=== PATIENT | male | born 1955 | race African-American/Black ===

== ENCOUNTER 2016-04-25 15:28 | Inpatient (IN) | payer OTHER ==
[2016-04-25] MEDS ORDERED: CLOPIDOGREL BISULFATE 75 MG TABLET (FP) ONE (16:19)
[2016-04-25 16:30] LABS: BASOPHIL 0.9 % (0-2.0); EOSINOPHIL 2.5 % (0-4.5); MCH 33.5 pg (25.7-33.7); MCHC 34.8 g/dl (32.0-35.9); MEAN CELL VOLUME 96.1 fl (80-96); MEAN PLT VOLUME 7.3 fl (7.5-11.1); NEUTROPHILS 49.6 % (42.8-82.8); PLATELET COUNT 205 K/MM3 (134-434); RDW 12.5 % (11.9-15.9); WHITE BLOOD COUNT 7.6 K/mm3 (4.0-10.0)
[2016-04-25 16:40] LABS: INR 1.11 (0.82-1.09); PROTHROMBIN TIME (PATIENT) 12.2 SEC (9.98-11.88)
--- NOTE | 2016-04-25 16:49 | PDOC ---
History of Present Illness - General Chief Complaint: CVA/TIA Stated Complaint: ABNORMAL MRI (PCP SENT) Time Seen by Provider: 04/25/16 16:23 History Source: Patient Exam Limitations: No Limitations - History of Present Illness Initial Comments: 04/25/16 19:30 60 year old male came for a scheduled MRI of brain (sent by Dr. Barajas) and found 2 new lesions hence sent to the ED. A/c to the patient, he had first stroke in November,, second stroke in February, with left eye vision problem with left sided weakness. 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 He visited Dr. Barajas in March and mentioned about vision loss since 10 days, hence she recommended him to get a Brain MRI and he came here at [facility] today. Patient had no new symptoms during these periods. Patient reports to have headache on/off in the temporal area, tremor of hands, Dizziness on/off since his last stroke. Hasn't been able to go to work since November,. Denies loc, trauma, chest pain, sob, cough, palpitation, abdominal pain, nausea or vomiting. Bowel/Bladder habit normal. Sleep/Appetite Normal Past Medical Hx: Hypertension, Hyperlipidemia, DM, Pancreatic cancer s/p surgery 17 yrs ago, 2 stroke with left sided weakness and left eye visual problem. 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 Barajas (Neurologist) 04/25/16 20:09 Past History - Past Medical History Allergies/Adverse Reactions: Allergies Allergy/AdvReac Type Severity Reaction Status Date / Time No Known Allergies Allergy Verified 04/25/16 15:47 Home Medications: Ambulatory Orders Unobtainable [Unobtainable] 04/25/16 CVA: Yes (2, IMBLANCE AT TIMES) Diabetes: Yes GI Disorders: Yes (PANCREATITIS) HTN: Yes - Surgical History Abdominal Surgery: Yes - Psycho/Social/Smoking Cessation Hx Suicidal Ideation: No Smoking History: Current every day smoker Number of Cigarettes Smoked Daily: 3 Information on smoking cessation initiated: No Hx Alcohol Use: Yes (THREE TIME A WEEK BEER) Drug/Substance Use Hx: No Review of Systems - Review of Systems Able to Perform ROS?: Yes Comments:: 04/25/16 19:42 CONSTITUTIONAL: Absent: fever, chills, diaphoresis, generalized weakness, malaise, loss of appetite HEENT: Absent: rhinorrhea, nasal congestion, throat pain, throat swelling, difficulty swallowing, mouth swelling, ear pain, eye pain, visual Changes CARDIOVASCULAR: Absent: chest pain, syncope, palpitations, irregular heart rate, lightheadedness , peripheral edema RESPIRATORY: Absent: cough, shortness of breath, dyspnea with exertion, orthopnea, wheezing, stridor, hemoptysis GASTROINTESTINAL: Absent: abdominal pain, abdominal distension, nausea, vomiting, diarrhea, constipation, melena, hematochezia GENITOURINARY: Absent: dysuria, frequency, urgency, hesitancy, hematuria, flank pain, genital pain MUSCULOSKELETAL: Absent: myalgia, arthralgia, joint swelling SKIN: Absent: rash, itching, pallor HEMATOLOGIC/IMMUNOLOGIC: Absent: easy bleeding, easy bruising, lymphadenopathy, frequent infections ENDOCRINE: Absent: unexplained weight gain, unexplained weight loss, heat intolerance, cold intolerance NEUROLOGIC: Present: Headhace, focal weakness or paresthesias, dizziness, Absent: unsteady gait, seizure, mental status changes, bladder or bowel incontinence PSYCHIATRIC: Absent: anxiety, depression, suicidal or homicidal ideation, hallucinations. Is the patient limited Tajik proficient: No *Physical Exam - Vital Signs Last Vital Signs Temp Pulse Resp BP Pulse Ox 98.5 F 66 16 148/79 98 04/25/16 15:43 04/25/16 15:43 04/25/16 15:43 04/25/16 15:43 04/25/16 15:43 - Physical Exam Comments: 04/25/16 19:43 PE: GENERAL: Awake, alert, and fully oriented, in no acute distress HEAD: No signs of trauma EYES: PERRLA, EOMI, sclera anicteric, conjunctiva clear Left eye visual loss (lateral half) ENT: Auricles normal inspection, hearing grossly normal, nares patent, oropharynx clear without exudates. Moist mucosa NECK: Normal ROM, supple, no lymphadenopathy, JVD, or masses LUNGS: Breath sounds equal, clear to auscultation bilaterally. No wheezes, and no crackles.. HEART: Regular rate and rhythm, normal S1 and S2, no murmurs, rubs or gallops ABDOMEN: Soft, nontender, normoactive bowel sounds. No guarding, no rebound. No masses UPPER EXTREMITIES: Normal range of motion, no edema. No clubbing or cyanosis. No cords, erythema, or tenderness NEUROLOGICAL: Normal speech, gait not observed. Bulk, tone of all limbs normal. Power 5/5 in upper and lower right, 3/5 in the left, left knee reflex diminished , left lower extremity sensation decreased SKIN: Warm, Dry, normal turgor, no rashes or lesions noted. 04/25/16 19:46 Critical Care Time/MDM Note - Medical Decision Making Note: 04/25/16 14:50 Patient seen and examined at bed side. Looks comfortable. Vitals unremarkable. Physical examination positive for NEUROLOGICAL: Normal speech, gait not observed. Bulk, tone of all limbs normal. Power 5/5 in upper and lower right, 3/5 in the left, left knee reflex diminished , left lower extremity sensation decreased. Spoke with Dr. Barajas and got detailed information. Patient goes to [facility] for treatment. Dr. Petersen saw the patient in Mar, 2016 and recommended MRI Brain. Discussed Brain MRI report over the phone. She recommends admission under Hospitalist, Holter monitor, Echo, PT evaluation, MRA brain and neck, DVT prophylaxis, Plavix 150mg stat, resume home medication. Patients labs noted, creatinine 1.5. Ordered IV NS @ 75mls/hr. Plan: As discussed above, will admit the patient. Patient has been explained in length about his condition, he understands his medical problem. Lovenox not given due to MAY, would consider Heparin MRA brain and neck with contrast not ordered due to MAY IV fluilds to be continued Once gets the home medication list from home, resume home meds Illness, Investigation and Plan of care explained to the patient. He verbalized understanding. Case seen and discussed with Dr. Patel. 04/25/16 20:06 Discharge Disposition - Diagnosis Stroke-like episode - Discharge Dispostion Admit: Yes - Referrals Referrals: Rosa Maria Petersen MD [Primary Care Provider] - Addendum entered and electronically signed by Ashley Alfred RES 05/02/16 18 :07: NIH Stroke Scale - Last Known Well Date/Time & Onset Date Last Known Well: 04/25/16 (Patient referred by Neuro for Brain MRI with 2 new lesions. MRI referred after patient had decreased visual loss since 10 days. ) Time Last Known Well: 16:48 - Initial Evaluation Level of consciousness: Alert Ask patient the month and their age: Answers both correctly Ask patient to open & close eyes; make fist and let go: Obeys both correctly Best gaze (horizontal eye movement): Normal Visual field testing: Partial hemianopia Facial paresis (Show teeth/raise eyebrows/close eyes tight): Normal symmetrical movement Motor Function: Left Arm: Normal Motor Function: Right Arm: Normal (extends arm 90 (or 45) degrees for 10 seconds without drift Motor Function: Left Leg: Normal (extends leg 30 degrees for 5 seconds without drift) Motor Function: Right Leg: Normal (extends leg 30 degrees for 5 seconds without drift) Limb Ataxia: No ataxia Sensory(Use pinprick test arms,legs,trunk,face/side to side): Mild to moderate decrease in sensation Best language (Describe picture, name items, read sentences): No Aphasia Dysarthria (read several words): Normal articulation Extinction and Inattention: No abnormality - Total Score NIH Stroke Scale Score: 2 Addendum entered and electronically signed by Ashley Alfred RES 05/02/16 18 :10: tPA Exclusion checklist 3-4.5h - Ineligibility reason(s) Reasons No tPA given: Outside of window - delayed arrival (No acute symptoms- visual loss was prior month; Delayed Neuro follow up. Case discussed with Dr. Petersen, she mentioned patient had stroke even on aspirin and was changed to plavix only in [facility], hence no aspirin to be given at this time, to be given Plavix 150mg stat.)
[2016-04-25 17:00] LABS: ALBUMIN 4.2 g/dl (3.4-5.0); ANION GAP 7 (8-16); CALCIUM 8.4 mg/dL (8.5-10.1); CO2 26 mmol/L (21-32); GLUCOSE,RANDOM 85 mg/dL (74-106)
[2016-04-25 17:06] LABS: ALK PHOS 61 U/L (45-117); BILIRUBIN,TOTAL 0.5 mg/dL (0.2-1.0); CREATININE 1.5 mg/dL (0.7-1.3); SGOT/AST 21 U/L (15-37); SGPT/ALT 39 U/L (12-78); TOT PROT 7.4 g/dl (6.4-8.2); TROPONIN I < 0.02 ng/ml (0.00-0.05)
[2016-04-25] MEDS ORDERED: CLOPIDOGREL BISULFATE 75 MG TABLET (FP) PO ONE (17:24)
[2016-04-25] MEDS: SODIUM CHLORIDE 1,000 ML IV SCH (18:00)
--- NOTE | 2016-04-25 19:34 | PDOC ---
Attending Attestation - Resident Resident Name: Aubrie,Jenny - HPI HPI: 04/25/16 19:30 60 yo male found to have brain MRI with new lesions/sent by neuro Dr Petersen for admission.Had c/o loss of vision that resulted in seeing ophthal then neurology who ordered the MRI. wnwd 60 yo male eyes-alcon , neck-supple, cvs [id number], lungs cta b/l, abd soft,nontender, neuro -axox3,ambulatory 04/27/16 02:19 - Physicial Exam PE: 04/25/16 19:33 axox3 WNWD 60 yo male lungs cta b/l cvr [id number] abd soft,nontender ext no edema neuro axox3,ambulatory,motor strength 5/5 b/l - Medical Decision Making 04/27/16 02:21 pt admitted for further neurological evaluation
--- NOTE | 2016-04-25 20:04 | PN ---
Teaching Attending Note Name of Resident: Rome De Souza ATTENDING PHYSICIAN STATEMENT I saw and evaluated the patient. I reviewed the resident's note and discussed the case with the resident. I agree with the resident's findings and plan as documented. SUBJECTIVE: OBJECTIVE: ASSESSMENT AND PLAN:
--- NOTE | 2016-04-25 21:32 | PDOC ---
*Physical Exam - Vital Signs Last Vital Signs Temp Pulse Resp BP Pulse Ox 98.5 F 66 16 148/79 98 04/25/16 15:43 04/25/16 15:43 04/25/16 15:43 04/25/16 15:43 04/25/16 15:43 ED Treatment Course - LABORATORY CBC & Chemistry Diagram: 04/25/16 16:11 04/25/16 16:11 - ADDITIONAL ORDERS Additional order review: Laboratory Results 04/25/16 04/25/16 16:11 16:11 INR 1.11 Sodium 136 Potassium 4.5 Chloride 103 Carbon Dioxide 26 Anion Gap 7 L BUN 29 H Creatinine 1.5 H Creat Clearance w eGFR 47.74 Random Glucose 85 Calcium 8.4 L Total Bilirubin 0.5 AST 21 ALT 39 Alkaline Phosphatase 61 Creatine Kinase 141 Troponin I < 0.02 Total Protein 7.4 Albumin 4.2 04/25/16 16:11 RBC 3.15 L MCV 96.1 H MCHC 34.8 RDW 12.5 MPV 7.3 L Neutrophils % 49.6 Lymphocytes % 36.9 Monocytes % 10.1 Eosinophils % 2.5 Basophils % 0.9 - Medications Given in the ED: ED Medications Discontinued Medications Generic Name Dose Route Start Last Admin Trade Name Freq PRN Reason Stop Dose Admin Clopidogrel Bisulfate 75 mg 04/25/16 17:24 04/25/16 17:00 Plavix - PO 04/25/16 17:25 75 mg ONCE ONE Administration *DC/Admit/Observation/Transfer Diagnosis at time of Disposition: Stroke-like episode, Abnormal vision - Discharge Dispostion Admit: Yes
--- NOTE | 2016-04-25 22:31 | HP ---
Admitting History and Physical - Primary Care Physician PCP: Munod Espinoza - Admission History of Present Illness: 60 year old male came for a scheduled MRI of brain (sent by Dr. Barajas) and found 2 new lesions hence sent to the ED. A/c to the patient, he had first stroke in November,, second stroke in February, with left eye vision problem with left sided weakness. 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 He visited Dr. Barajas in March and mentioned about vision loss since 10 days, hence she recommended him to get a Brain MRI and he came here at [facility] today. Patient had no new symptoms during these periods. Patient reports to have headache on/off in the temporal area, tremor of hands, Dizziness on/off since his last stroke. Hasn't been able to go to work since - Smoking History Smoking history: Current every day smoker Aproximately how many cigarettes per day: 3 - Alcohol/Substance Use Hx Alcohol Use: Yes (THREE TIME A WEEK BEER) Home Medications - Allergies Allergies/Adverse Reactions: Allergies Allergy/AdvReac Type Severity Reaction Status Date / Time No Known Allergies Allergy Verified 04/25/16 15:47 - Home Medications Home Medications: Ambulatory Orders Clopidogrel Bisulfate [Plavix -] 75 mg PO DAILY 04/26/16 Gabapentin 300 mg PO HS 04/26/16 Insulin Glargine,Hum.rec.anlog [Lantus (10mL VIAL) -] 40 units SQ AM 04/26/16 Insulin Glargine,Hum.rec.anlog [Lantus (10mL VIAL) -] 60 units SQ HS 04/26/16 Labetalol HCl [Normodyne -] 200 mg PO BID 04/26/16 Lipase/Protease/Amylase [Chris Wynn 24,000 Units Capsule] 24,000 units PO TID Losartan/Hydrochlorothiazide [Losartan-Hctz 100-25 mg Tab] 1 cap PO DAILY Oxycodone HCl/Acetaminophen [Endocet 5-325 Tablet] 1 each PO Q4H PRN 04/26/16 Paroxetine HCl [Paxil] 30 mg PO DAILY 04/26/16 Aspirin [ASA -] 325 mg PO DAILY #30 tablet 04/27/16 Atorvastatin Ca [Lipitor] 20 mg PO HS #30 tablet 04/27/16 Physical Examination Vital Signs: Vital Signs Temperature 98.5 F 04/25/16 15:43 Pulse Rate 66 04/25/16 15:43 Respiratory Rate 16 04/25/16 15:43 Blood Pressure 148/79 04/25/16 15:43 O2 Sat by Pulse Oximetry (%) 98 04/25/16 15:43 Constitutional: Yes: No Distress HENT: Yes: Atraumatic Neck: Yes: Supple Cardiovascular: Yes: Regular Rate and Rhythm Respiratory: Yes: CTA Bilaterally Gastrointestinal: Yes: Normal Bowel Sounds Extremities: Yes: WNL Problem List - Problems (1) Stroke-like episode Code(s): I63.9 - CEREBRAL INFARCTION, UNSPECIFIED (2) Vision abnormalities Code(s): H53.9 - UNSPECIFIED VISUAL DISTURBANCE Assessment/Plan Laboratory Tests 04/25/16 04/25/16 04/25/16 16:11 16:11 16:11 WBC 7.6 RBC 3.15 L Hgb 10.5 L Hct 30.3 L MCV 96.1 H MCHC 34.8 RDW 12.5 Plt Count 205 MPV 7.3 L Neutrophils % 49.6 Lymphocytes % 36.9 Monocytes % 10.1 Eosinophils % 2.5 Basophils % 0.9 INR 1.11 Sodium 136 Potassium 4.5 Chloride 103 Carbon Dioxide 26 Anion Gap 7 L BUN 29 H Creatinine 1.5 H Creat Clearance w eGFR 47.74 Random Glucose 85 Calcium 8.4 L Total Bilirubin 0.5 AST 21 ALT 39 Alkaline Phosphatase 61 Creatine Kinase 141 Troponin I < 0.02 Total Protein 7.4 Albumin 4.2 Active Medications Generic Name Dose Route Start Last Admin Trade Name Freq PRN Reason Stop Dose Admin Acetaminophen 650 mg 04/25/16 22:43 04/25/16 22:44 Tylenol - PO 650 mg Q6H PRN Administration FEVER OR PAIN Acetaminophen 325 mg 04/26/16 18:34 04/28/16 16:42 Tylenol - PO 04/29/16 18:33 325 mg Q4H PRN Administration PAIN Aspirin 325 mg 04/27/16 10:00 04/28/16 09:37 Asa - PO 325 mg DAILY JAYY Administration Atorvastatin Calcium 10 mg 04/27/16 22:00 04/27/16 22:19 Lipitor - PO 10 mg HS JAYY Administration Clopidogrel Bisulfate 75 mg 04/27/16 10:00 04/28/16 09:38 Plavix - PO 75 mg DAILY JAYY Administration Gabapentin 300 mg 04/26/16 22:00 04/27/16 22:19 Neurontin - PO 300 mg HS JAYY Administration HCTZ/Losartan Potassium 2 tab 04/27/16 10:00 04/28/16 09:38 Hyzaar - PO 2 tab DAILY JAYY Administration Sodium Chloride 1,000 mls @ 75 mls/hr 04/25/16 17:45 04/28/16 05:43 Normal Saline - IV 75 mls/hr ASDIR JAYY Administration Insulin Aspart 1 vial 04/28/16 11:00 04/28/16 18:18 Novolog Vial Sliding Scale - SQ Not Given BID@[id number] [facility] Protocol Insulin Detemir 40 units 04/27/16 07:00 04/28/16 09:38 Levemir Vial SQ 40 units AM JAYY Administration Insulin Detemir 60 units 04/26/16 20:00 04/27/16 22:20 Levemir Vial SQ 60 units HS [facility] Administration Labetalol HCl 200 mg 04/26/16 17:15 04/28/16 09:38 Normodyne - PO 200 mg BID JAYY Administration Non-Formulary Medication 24,000 units 04/27/16 08:00 Lipase/Protease/Amylase [Chris Wynn 24,000 Units Capsule] PO TIDCM [facility] Oxycodone HCl 5 mg 04/26/16 18:34 04/28/16 16:42 Roxicodone - PO 5 mg Q4H PRN Administration PAIN Paroxetine HCl 30 mg 04/27/16 10:00 04/28/16 09:38 Paxil - PO 30 mg DAILY JAYY Administration 1.CVA R/O MRI NEURO CONSULT1.CVA on asa 2.dm insulin bgms 3.htn stable on meds on holter monitor pt eval dvt ppx pt ambulates
[2016-04-25] MEDS ORDERED: ACETAMINOPHEN 325 MG TABLET (FP) ONE (22:38)
[2016-04-25] MEDS ORDERED: ACETAMINOPHEN 325 MG TABLET (FP) PO PRN ×3 (22:43→23:42)
[2016-04-25] MEDS ORDERED: ACETAMINOPHEN 325 MG TABLET (FP) PO SCH (22:45)
[2016-04-25] MEDS ORDERED: OXYCODONE/APAP 5/325MG COMBO TABLET PO PRN (23:39)
[2016-04-26] MEDS ORDERED: oxyCODONE HCL 5 MG TABLET ONE ×2 (01:18→06:50)
[2016-04-26] MEDS: oxyCODONE HCL 5 MG TABLET PO PRN ×4 (01:38→20:21)
--- NOTE | 2016-04-26 09:40 | CON.CARD ---
Consult Consult Specialty:: Cardiology Referred by:: Dr. Espinoza Reason for Consultation:: CVA - History of Present Illness Chief Complaint: Admitted for CVA History of Present Illness: 60 year old man with a history of HTN, HLD, DM II, Pancreatic CA s/p surgery, multiple prior CVA's 11/2015 and 02/2016 admitted with new neurologic deficits and found to have new CVA's on MRI. Pt. was seen and examined this am in the ER in [facility]. He denies any chest pain, sob, palpitations, syncope, or near syncope. He does have headache and intermittent dizziness. No pnd, orthopnea or LE edema. 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 Cardio/Vascular: Yes: HTN, Hyperlipdemia - Alcohol/Substance Use Hx Alcohol Use: Yes (THREE TIME A WEEK BEER) - Smoking History Smoking history: Current every day smoker Aproximately how many cigarettes per day: 3 - Social History ADL: Independent History of Recent Travel: No Home Medications - Allergies Allergies/Adverse Reactions: Allergies Allergy/AdvReac Type Severity Reaction Status Date / Time No Known Allergies Allergy Verified 04/25/16 15:47 - Home Medications Home Medications: Ambulatory Orders Atorvastatin Ca [Lipitor] 10 mg PO HS 04/26/16 Clopidogrel Bisulfate [Plavix -] 75 mg PO DAILY 04/26/16 Gabapentin 300 mg PO HS 04/26/16 Insulin Glargine,Hum.rec.anlog [Lantus (nf)] 40 units SQ AM 04/26/16 Insulin Glargine,Hum.rec.anlog [Lantus (nf)] 60 units SQ HS 04/26/16 Labetalol HCl [Normodyne -] 200 mg PO BID 04/26/16 Lipase/Protease/Amylase [Chris Wynn 24,000 Units Capsule] 24,000 units PO TID Losartan/Hydrochlorothiazide [Losartan-Hctz 100-25 mg Tab] 1 cap PO DAILY Oxycodone HCl/Acetaminophen [Endocet 5-325 Tablet] 1 each PO Q4H PRN 04/26/16 Paroxetine HCl [Paxil] 30 mg PO DAILY 04/26/16 Family Disease History - Family Disease History Family History: Denies Review of Systems - Review of Systems Constitutional: denies: No Symptoms, Chills, Diaphoresis, Fever, Lethargy, Loss of Appetite, Malaise, Night Sweats, Unintentional Wgt. Loss, Weakness, Other Eyes: reports: Blind Spots, Recent Change in Vision. denies: No Symptoms, Blurred Vision, Double Vision, Eye Pain, Floaters, Photophobia, Other HENT: denies: No Symptoms, Difficult Swallowing, Ear Discharge, Ear Pain, Epistaxis, Gingival Bleeding, Hearing Loss, Mouth Swelling, Nasal Congestion, Ocular Prosthesis, Throat Pain, Toothache, Ringing in Ears, Other Neck: denies: No Symptoms, Decreased ROM, Lumps, Pain on Movement, Stiffness, Swollen Glands, Tenderness, Other Cardiovascular: denies: No Symptoms, Chest Pain, Edema, Palpitations, Shortness of Breath, Other Respiratory: denies: No Symptoms, Cough, Exercise Intolerance, Hemoptysis, Orthopnea, PND, Snoring, SOB, SOB on Exertion, Wheezing, Other Gastrointestinal: denies: No Symptoms, Abdominal Pain, Bloating, Constipation, Diarrhea, Dysphagia, Indigestion, Melena, Nausea, Rectal Bleeding, Vomiting, Vomiting Blood, Other Genitourinary: denies: No Symptoms, Burning, Discharge, Dysuria, Flank Pain, Frequency, Hematuria, Incontinence, Lesions, Menses, Pain, Testicular Mass, Testicular Pain, Testicular Swelling, Urgency, Vaginal Bleeding, Other Breasts: denies: No Symptoms Reported, See HPI, Breast Implants, Discharge from Nipple, Lumps, Pain, Skin Changes, Other Musculoskeletal: denies: No Symptoms, Back Pain, Crepitus, Decreased ROM, Extremity Pain, Joint Pain, Joint Swelling, Muscle Pain, Muscle Cramps, Muscle Weakness, Other Integumentary: denies: No Symptoms, Blister, Bruising, Change in Color, Eczema, Erythema, Incision, Lesions, Lump, Pallor, Pruritis, Rash, Wound, Other Neurological: reports: Dizziness Endocrine: denies: No Symptoms, Excessive Sweating, Flushing, Increased Hunger, Increased Thirst, Intolerance to Cold, Intolerance to Heat, Unexplained Weight Gain, Unexplained Weight Loss, Other Hematology/Lymphatic: denies: No Symptoms, Easily Bruised, Excessive Bleeding, Swollen Glands, Other Psychiatric: denies: No Symptoms, Altered Sleep Pattern, Anxiety, Depression, Hallucinations, Panic, Paranoia, Suicidal, Other - Risk Factors Known Risk Factors: Yes: Hypercholesterolemia, Hypertension Vital Signs: Vital Signs Temperature 98.5 F 04/25/16 15:43 Pulse Rate 59 L 04/26/16 06:54 Respiratory Rate 14 04/26/16 06:54 Blood Pressure 180/89 04/26/16 06:54 O2 Sat by Pulse Oximetry (%) 98 04/26/16 06:54 Constitutional: Yes: Well Nourished, No Distress, Calm Eyes: Yes: WNL, Conjunctiva Clear, EOM Intact, PERRL HENT: Yes: WNL, Atraumatic, Normocephalic Neck: Yes: WNL, Supple, Trachea Midline Respiratory: Yes: WNL, Regular, CTA Bilaterally. No: Rales, Rhonchi, Wheezes Gastrointestinal: Yes: WNL, Normal Bowel Sounds, Soft. No: Distention, Tenderness Renal/: Yes: WNL Cardiovascular: Yes: Regular Rate and Rhythm. No: Bradycardia, Tachycardia, Pulse Irregular, Gallop, Rub, Varicosities JVD: No Carotid Bruit: No PMI: Non-Displaced Heart Sounds: Yes: S1, S2. No: Split S2, S3, S4, Clicks, Gallop, Rub, Bruit Murmur: No: Systolic Murmur, Diastolic Murmur Musculoskeletal: Yes: WNL Extremities: Yes: WNL Edema: No Peripheral Pulses WNL: Yes Peripheral Pulses: 2+ Left Doralis Pedis, 2+ Right Dorsalis Pedis Integumentary: Yes: WNL Neurological: Yes: Alert, Oriented, Pre-Existing Deficit Psychiatric: Yes: Alert, Oriented - Other Data Labs, Other Data: INR, PTT INR 1.11 (0.82-1.09) 04/25/16 16:11 ekg-nsr 65bpm, 1st deg AVB, nsst Imaging - Results Chest X-ray: Report Reviewed, Image Reviewed EKG: Report Reviewed, Image Reviewed Other: Report Reviewed, Image Reviewed (tele-while in ER-nsr, no arrhythmias recorded) Assessment/Plan 60 year old man with a history of HTN, HLD, DM II, Pancreatic CA s/p surgery, multiple prior CVA's 11/2015 and 02/2016 admitted with new neurologic deficits and found to have new CVA's on MRI. CVA-multiple, admitted with subacute infarcts Check echo to evaluate for structural heart disease Holter monitor or tele monitoring to evaluate for occult arrhythmia Carotid doppler done showed no plaque or stenosis Neurology evaluated HTN goals as per neurology guidelines, RN called stating SBP >180mmHg, will resume home labetalol 200mg bid and restart home losartan/hctz with caution to avoid hypotension Cont ASA and statin
--- NOTE | 2016-04-26 11:28 | CONSULT ---
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 The patient states he was seen by Dr Petersen as an outpatient and reported some worsening of vision. Dr Petersen sent the patient for MRI brain which revealed nonhemorragic right retrolenticular and right pulvinar ischemic infarcts. Due to these findings, the patient was instructed to come to the ED for further stroke workup. States he is compliant on aspirin as an outpatient. NIHSS 4 - left leg drift and hemianopia - History Source History Provided By: Patient - Past Medical History PUBLIC HEALTH: Yes: CVA - Alcohol/Substance Use Hx Alcohol Use: Yes (THREE TIME A WEEK BEER) - Smoking History Smoking history: Current every day smoker Aproximately how many cigarettes per day: 3 Home Medications - Allergies Allergies/Adverse Reactions: Allergies Allergy/AdvReac Type Severity Reaction Status Date / Time No Known Allergies Allergy Verified 04/25/16 15:47 - Home Medications Home Medications: Ambulatory Orders Atorvastatin Ca [Lipitor] 10 mg PO HS 04/26/16 Clopidogrel Bisulfate [Plavix -] 75 mg PO DAILY 04/26/16 Gabapentin 300 mg PO HS 04/26/16 Insulin Glargine,Hum.rec.anlog [Lantus (nf)] 40 units SQ AM 04/26/16 Insulin Glargine,Hum.rec.anlog [Lantus (nf)] 60 units SQ HS 04/26/16 Labetalol HCl [Normodyne -] 200 mg PO BID 04/26/16 Lipase/Protease/Amylase [Chris Wynn 24,000 Units Capsule] 24,000 units PO TID Losartan/Hydrochlorothiazide [Losartan-Hctz 100-25 mg Tab] 1 cap PO DAILY Review of Systems - Review of Systems Constitutional: reports: No Symptoms Eyes: reports: Recent Change in Vision HENT: reports: No Symptoms Neck: reports: No Symptoms Cardiovascular: reports: No Symptoms Respiratory: reports: No Symptoms Neurological: reports: Weakness Physical Exam Vital Signs: Vital Signs Temperature 98.5 F 04/25/16 15:43 Pulse Rate 90 04/26/16 10:08 Respiratory Rate 18 04/26/16 10:08 Blood Pressure 150/77 04/26/16 10:08 O2 Sat by Pulse Oximetry (%) 100 04/26/16 10:08 Constitutional: Yes: No Distress Eyes: Yes: Conjunctiva Clear, EOM Intact HENT: Yes: Atraumatic, Normocephalic Cardiovascular: Yes: S1, S2 Respiratory: Yes: Regular Neurological: Yes: Alert, Oriented, Other (EOMI, visual galicia full, left homonymous hemianopia Motor: can lift left leg against gravity difficult to sustain, ?left pronator drift subtle, right arm/leg strength intact Sensory intact to light touch) Assessment/Plan 60 year old man, with history of multiple prior strokes with residual left hemiparesis and hemianopia, hypertension, diabetes, sent yesterday for MRI brain findings of new acute ischemic infarcts. The patient states he was seen by Dr Petersen as an outpatient and reported some worsening of vision. Dr Petersen sent the patient for MRI brain which revealed nonhemorragic right retrolenticular and right pulvinar ischemic infarcts. Due to these findings, the patient was instructed to come to the ED for further stroke workup. States he is compliant on aspirin as an outpatient. Stroke MRI brain which revealed nonhemorragic right retrolenticular and right pulvinar ischemic infarcts NIHSS 4 - left leg drift and hemianopia Start aspirin 325 daily - ordered Atorvastatin - ordered Cardiology following Carotid dopplers report pending Echocardiogram Ldl, hga1c- ordered Pt/OT
[2016-04-26 13:18] VITALS: BMI 29.0
[2016-04-26] MEDS ORDERED: INFLUENZA VACCINE 45 MCG/0.5 ML (MDV 16-17) IM ONE (13:18)
[2016-04-26] MEDS: LABETALOL HCL 200 MG TABLET (FP) PO SCH ×3 (17:19→22:47)
[2016-04-26] MEDS: SODIUM CHLORIDE 1,000 ML IV SCH (17:20)
[2016-04-26] MEDS ORDERED: OXYCODONE/APAP 5/325MG COMBO TABLET PO PRN (18:20)
--- NOTE | 2016-04-26 18:20 | PN ---
Progress Note, Physician History of Present Illness: doing well - Current Medication List Current Medications: Active Medications Acetaminophen (Tylenol -) 650 mg PO Q6H PRN PRN Reason: FEVER OR PAIN Last Admin: 04/25/16 22:44 Dose: 650 mg Acetaminophen (Tylenol -) 325 mg PO Q4H PRN PRN Reason: PAIN Stop: 04/28/16 23:41 Last Admin: 04/26/16 16:04 Dose: 325 mg Aspirin (Asa -) 325 mg PO DAILY [facility] Atorvastatin Calcium (Lipitor -) 20 mg PO HS [facility] HCTZ/Losartan Potassium (Hyzaar -) 2 tab PO DAILY [facility] Sodium Chloride (Normal Saline -) 1,000 mls @ 75 mls/hr IV ASDIR [facility] Last Admin: 04/26/16 17:20 Dose: 75 mls/hr Labetalol HCl (Normodyne -) 200 mg PO BID [facility] Last Admin: 04/26/16 17:19 Dose: 200 mg Oxycodone HCl (Roxicodone -) 5 mg PO Q4H PRN PRN Reason: PAIN Last Admin: 04/26/16 16:03 Dose: 5 mg - Objective Vital Signs: Vital Signs Temperature 98.2 F 04/26/16 14:45 Pulse Rate 58 L 04/26/16 17:00 Respiratory Rate 18 04/26/16 17:00 Blood Pressure 189/93 04/26/16 17:00 O2 Sat by Pulse Oximetry (%) 98 04/26/16 13:09 HENT: Yes: Atraumatic Neck: Yes: Supple Cardiovascular: Yes: Regular Rate and Rhythm Respiratory: Yes: CTA Bilaterally Gastrointestinal: Yes: Normal Bowel Sounds Extremities: Yes: WNL Neurological: Yes: Alert, Oriented Labs: INR, PTT INR 1.11 (0.82-1.09) 04/25/16 16:11 Problem List - Problems (1) Stroke-like episode Code(s): I63.9 - CEREBRAL INFARCTION, UNSPECIFIED (2) Vision abnormalities Code(s): H53.9 - UNSPECIFIED VISUAL DISTURBANCE Assessment/Plan Laboratory Tests 04/25/16 04/25/16 04/25/16 16:11 16:11 16:11 WBC 7.6 RBC 3.15 L Hgb 10.5 L Hct 30.3 L MCV 96.1 H MCHC 34.8 RDW 12.5 Plt Count 205 MPV 7.3 L Neutrophils % 49.6 Lymphocytes % 36.9 Monocytes % 10.1 Eosinophils % 2.5 Basophils % 0.9 INR 1.11 Sodium 136 Potassium 4.5 Chloride 103 Carbon Dioxide 26 Anion Gap 7 L BUN 29 H Creatinine 1.5 H Creat Clearance w eGFR 47.74 Random Glucose 85 Calcium 8.4 L Total Bilirubin 0.5 AST 21 ALT 39 Alkaline Phosphatase 61 Creatine Kinase 141 Troponin I < 0.02 Total Protein 7.4 Albumin 4.2 1.CVA MRI report reviewed NEURO CONSULT...reviewed on asa 2.dm insulin bgms 3.htn stable on meds on holter monitor pt eval dvt ppx pt ambulates
[2016-04-26] MEDS: INSULIN DETEMIR 100 UNITS/ML MDV SQ SCH (20:11)
[2016-04-26] MEDS: ACETAMINOPHEN 325 MG TABLET (FP) PO PRN (20:23)
--- NOTE | 2016-04-26 21:31 | EKG ---
Test Reason : Blood Pressure : / mmHG Vent. Rate : 065 BPM Atrial Rate : 065 BPM P-R Int : 200 ms QRS Dur : 084 ms QT Int : 378 ms P-R-T Axes : -09 013 022 degrees QTc Int : 393 ms NORMAL SINUS RHYTHM NORMAL ECG NO PREVIOUS ECGS AVAILABLE Confirmed by JOSE COBOS MD ([id number]) on 04/26/2016 9:31:29 PM Referred By: Confirmed By:JOSE COBOS MD
[2016-04-26] MEDS ORDERED: ATORVASTATIN CA 20 MG TABLET (FP) PO SCH (22:00)
[2016-04-26] MEDS ORDERED: ATORVASTATIN CA 10 MG TABLET (FP) PO SCH (22:00)
[2016-04-26] MEDS ORDERED: INSULIN DETEMIR 100 UNITS/ML MDV SQ SCH (22:00)
[2016-04-26] MEDS ORDERED: LABETALOL HCL 200 MG TABLET (FP) PO SCH ×3 (22:00)
[2016-04-26] MEDS ORDERED: ATORVASTATIN CA 10 MG TABLET (FP) PO ONE (22:45)
[2016-04-26] MEDS: GABAPENTIN 300 MG CAPSULE (FP) PO SCH (22:47)
[2016-04-27] MEDS: SODIUM CHLORIDE 1,000 ML IV SCH ×2 (03:51→21:54)
[2016-04-27] MEDS: INSULIN DETEMIR 100 UNITS/ML MDV SQ SCH ×2 (06:42→22:20)
[2016-04-27] MEDS: ACETAMINOPHEN 325 MG TABLET (FP) PO PRN ×3 (07:10→22:19)
[2016-04-27] MEDS: oxyCODONE HCL 5 MG TABLET PO PRN ×3 (07:10→22:18)
[2016-04-27] MEDS ORDERED: PATIENT'S OWN MEDICATION (NON-FORMULARY) (Lipase/Protease/Amylase [Creon Dr 24,000 Units C PO SCH (08:00)
[2016-04-27 08:14] LABS: CHOLESTEROL 152 mg/dL (50-200)
[2016-04-27 08:19] LABS: LDL CHOLESTEROL (ONLY SJRH) 91 mg/dL (5-100)
[2016-04-27 09:00] LABS: MCH 32.9 pg (25.7-33.7); MCHC 34.2 g/dl (32.0-35.9); MEAN CELL VOLUME 96.1 fl (80-96); MEAN PLT VOLUME 7.4 fl (7.5-11.1); PLATELET COUNT 173 K/MM3 (134-434); WHITE BLOOD COUNT 6.9 K/mm3 (4.0-10.0)
[2016-04-27] MEDS ORDERED: PT OWN MED DRAWER 7, Y5N ONE (09:20)
[2016-04-27] MEDS: LABETALOL HCL 200 MG TABLET (FP) PO SCH ×2 (09:31→22:09)
[2016-04-27] MEDS: LOSARTAN 50MG/HCTZ 12.5MG 1 TAB (FP) PO SCH (09:32)
[2016-04-27] MEDS: PARoxetine HCL 10 MG TABLET (FP) PO SCH (09:33)
[2016-04-27] MEDS: ASPIRIN 325 MG TABLET PO SCH (09:34)
[2016-04-27] MEDS: CLOPIDOGREL BISULFATE 75 MG TABLET (FP) PO SCH (09:34)
--- NOTE | 2016-04-27 10:01 | PN ---
Progress Note, Physician History of Present Illness: seen and examined today in nad. no overnight events. no new complaints. - Current Medication List Current Medications: Active Medications Acetaminophen (Tylenol -) 650 mg PO Q6H PRN PRN Reason: FEVER OR PAIN Last Admin: 04/25/16 22:44 Dose: 650 mg Acetaminophen (Tylenol -) 325 mg PO Q4H PRN PRN Reason: PAIN Stop: 04/29/16 18:33 Last Admin: 04/27/16 07:10 Dose: 325 mg Aspirin (Asa -) 325 mg PO DAILY [facility] Last Admin: 04/27/16 09:34 Dose: 325 mg Atorvastatin Calcium (Lipitor -) 20 mg PO [facility] Clopidogrel Bisulfate (Plavix -) 75 mg PO DAILY [facility] Last Admin: 04/27/16 09:34 Dose: 75 mg Gabapentin (Neurontin -) 300 mg PO HS [facility] Last Admin: 04/26/16 22:47 Dose: 300 mg HCTZ/Losartan Potassium (Hyzaar -) 2 tab PO DAILY [facility] Last Admin: 04/27/16 09:32 Dose: Not Given Sodium Chloride (Normal Saline -) 1,000 mls @ 75 mls/hr IV ASDIR [facility] Last Admin: 04/27/16 03:51 Dose: 75 mls/hr Insulin Detemir (Levemir Vial) 40 units SQ AM [facility] Last Admin: 04/27/16 06:42 Dose: 40 units Insulin Detemir (Levemir Vial) 60 units SQ HS [facility] Last Admin: 04/26/16 20:11 Dose: 60 unit Labetalol HCl (Normodyne -) 200 mg PO BID [facility] Last Admin: 04/27/16 09:31 Dose: Not Given Non-Formulary Medication (Lipase/Protease/Amylase [Chris Dr 24,000 Units Capsule ]) 24,000 units PO TIDCM [facility] Oxycodone HCl (Roxicodone -) 5 mg PO Q4H PRN PRN Reason: PAIN Last Admin: 04/27/16 07:10 Dose: 5 mg Paroxetine HCl (Paxil -) 30 mg PO DAILY [facility] Last Admin: 04/27/16 09:33 Dose: 30 mg - Objective Vital Signs: Vital Signs Temperature 97.7 F 04/27/16 06:00 Pulse Rate 62 04/27/16 06:00 Respiratory Rate 16 04/27/16 06:00 Blood Pressure 162/82 04/27/16 06:00 O2 Sat by Pulse Oximetry (%) 98 04/26/16 20:00 Constitutional: Yes: Well Nourished, No Distress, Calm Eyes: Yes: WNL, Conjunctiva Clear, EOM Intact, PERRL HENT: Yes: WNL, Atraumatic, Normocephalic Neck: Yes: WNL, Supple, Trachea Midline Cardiovascular: Yes: Regular Rate and Rhythm, S1, S2. No: Bradycardia, Tachycardia, Pulse Irregular, Bruit, JVD, Gallop, Murmur, Rub, S3, S4, Varicosities Respiratory: Yes: WNL, Regular, CTA Bilaterally. No: Rales, Rhonchi, Wheezes Gastrointestinal: Yes: WNL, Normal Bowel Sounds, Soft. No: Distention, Tenderness Musculoskeletal: Yes: WNL Extremities: Yes: WNL Edema: No Peripheral Pulses: Left Doralis Pedis: 2+, Right Dorsalis Pedis: 2+ Integumentary: Yes: WNL Neurological: Yes: Alert, Oriented, Pre-Existing Deficit Psychiatric: Yes: Alert, Oriented Labs: CBC, BMP 04/27/16 08:53 INR, PTT INR 1.11 (0.82-1.09) 04/25/16 16:11 - ....Imaging Chest X-ray: Report Reviewed, Image Reviewed EKG: Report Reviewed, Image Reviewed Other: Report Reviewed, Image Reviewed (tele-nsr, no arrhythmias recorded, sinus bradycardia) Assessment/Plan 60 year old man with a history of HTN, HLD, DM II, Pancreatic CA s/p surgery, multiple prior CVA's 11/2015 and 02/2016 admitted with new neurologic deficits and found to have new CVA's on MRI. CVA-multiple, admitted with subacute infarcts Echo showed normal LV function, mild mr, no pericardial effusion Tele monitoring has showed no arrhythmias Pt also has Holter monitor on, f/up results Holter monitor or tele monitoring to evaluate for occult arrhythmia Carotid doppler showed no plaque or stenosis Neurology evaluated HTN goals as per neurology guidelines, resume home meds as needed to achieve HTN goal Cont ASA and statin If CVA's felt to be embolic in origin, will be available for KANDIS if needed
[2016-04-27 10:05] LABS: ALBUMIN 3.8 g/dl (3.4-5.0); ANION GAP 8 (8-16); BILIRUBIN,TOTAL 0.6 mg/dL (0.2-1.0); CALCIUM 8.9 mg/dL (8.5-10.1); CO2 26 mmol/L (21-32); GLUCOSE,RANDOM 69 mg/dL (74-106); SGOT/AST 12 U/L (15-37); SGPT/ALT 30 U/L (12-78); TOT PROT 6.6 g/dl (6.4-8.2)
[2016-04-27 10:06] LABS: ALK PHOS 53 U/L (45-117)
--- NOTE | 2016-04-27 12:16 | PN ---
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 The patient states he was seen by Dr Petersen as an outpatient and reported some worsening of vision. Dr Petersen sent the patient for MRI brain which revealed nonhemorragic right retrolenticular and right pulvinar ischemic infarcts. Due to these findings, the patient was instructed to come to the ED for further stroke workup. States he is compliant on aspirin as an outpatient. NIHSS 4 - left leg drift and hemianopia No new complaints overnight. 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 - Alcohol/Substance Use Hx Alcohol Use: Yes (THREE TIME A WEEK BEER) - Smoking History Smoking history: Current every day smoker Aproximately how many cigarettes per day: 3 Home Medications - Allergies Allergies/Adverse Reactions: Allergies Allergy/AdvReac Type Severity Reaction Status Date / Time No Known Allergies Allergy Verified 04/25/16 15:47 - Home Medications Home Medications: Ambulatory Orders Atorvastatin Ca [Lipitor] 10 mg PO HS 04/26/16 Clopidogrel Bisulfate [Plavix -] 75 mg PO DAILY 04/26/16 Gabapentin 300 mg PO HS 04/26/16 Insulin Glargine,Hum.rec.anlog [Lantus (nf)] 40 units SQ AM 04/26/16 Insulin Glargine,Hum.rec.anlog [Lantus (nf)] 60 units SQ HS 04/26/16 Labetalol HCl [Normodyne -] 200 mg PO BID 04/26/16 Lipase/Protease/Amylase [Chris Wynn 24,000 Units Capsule] 24,000 units PO TID Losartan/Hydrochlorothiazide [Losartan-Hctz 100-25 mg Tab] 1 cap PO DAILY Review of Systems - Review of Systems Constitutional: reports: No Symptoms Eyes: reports: Recent Change in Vision HENT: reports: No Symptoms Neck: reports: No Symptoms Cardiovascular: reports: No Symptoms Respiratory: reports: No Symptoms Neurological: reports: Weakness Physical Exam Vital Signs: Vital Signs Temperature 98.5 F 04/25/16 15:43 Pulse Rate 90 04/26/16 10:08 Respiratory Rate 18 04/26/16 10:08 Blood Pressure 150/77 04/26/16 10:08 O2 Sat by Pulse Oximetry (%) 100 04/26/16 10:08 Constitutional: Yes: No Distress Eyes: Yes: Conjunctiva Clear, EOM Intact HENT: Yes: Atraumatic, Normocephalic Cardiovascular: Yes: S1, S2 Respiratory: Yes: Regular Neurological: Yes: Alert, Oriented, Other (EOMI, visual galicia full, left homonymous hemianopia Motor: can lift left leg against gravity difficult to sustain, ?left pronator drift subtle, right arm/leg strength intact Sensory intact to light touch) Assessment/Plan 60 year old man, with history of multiple prior strokes with residual left hemiparesis and hemianopia, hypertension, diabetes, sent yesterday for MRI brain findings of new acute ischemic infarcts. The patient states he was seen by Dr Petersen as an outpatient and reported some worsening of vision. Dr Petersen sent the patient for MRI brain which revealed nonhemorragic right retrolenticular and right pulvinar ischemic infarcts. Due to these findings, the patient was instructed to come to the ED for further stroke workup. States he is compliant on aspirin as an outpatient. Stroke MRI brain which revealed nonhemorragic right retrolenticular and right pulvinar ischemic infarcts Unclear if embolic, typically embolic infarcts bilaterally however can not ascertain given history of prior xiong as well NIHSS 4 - left leg drift and hemianopia Aspirin 325 daily Atorvastatin 10 mg daily Carotid dopplers no high grade stenosis Echocardiogram- LV normal Cardiology following PT
--- NOTE | 2016-04-27 16:03 | HOL ---
Hook-up date: 2016-04-26 09:20:00 Duration: 24:00:00 Test Indications: STROKE Medications: 49229 QRS complexes 2 Ventricular ectopics which represent <1 % of total QRS comp. 33 Supraventricular ectopics which represent <1 % of total QRS comp. * Paced QRS complexs which represent % of total QRS comp. 1 % of Time Classified as Noise VENTRICULAR ECTOPY 2 Isolated 0 Bigeminal Cycles 0 Couplets 0 Runs 0 Beats in Runs * Beats LONGEST at * BPM at :: -- * Beats FASTEST at * BPM at :: -- SUPRAVENTRICULAR ECTOPY 31 Isolated 1 Couplets 0 Runs 0 Beats in Runs * Beats LONGEST at * BPM at :: -- * Beats FASTEST at * BPM at :: -- HEART RATES 54 MIN at 11:40:13 2016-04-26 64 AVG 95 MAX at 21:07:14 2016-04-26 LONGEST RR 1.440 secs at 07:39:50 2016-04-27 SCANNED BY SONU BAI 04/27/2016 NO DIARY SUBMITTED The underlying rhythm was sinus. There were rare isolabted APCs and PVCs. There were no arrhythmias.\ There were no significant pauses. Confirmed by OBI LAKHANI MD ([id number]) on 04/27/2016 4:02:50 PM Referred By: Overread By: OBI LAKHANI MD
[2016-04-27] MEDS ORDERED: INSULIN (NOVOLOG) ASPART 100 UNITS/ML 10ML VIAL ONE ×2 (16:14→18:30)
--- NOTE | 2016-04-27 18:20 | PN ---
Progress Note, Physician History of Present Illness: doing well - Current Medication List Current Medications: Active Medications Acetaminophen (Tylenol -) 650 mg PO Q6H PRN PRN Reason: FEVER OR PAIN Last Admin: 04/25/16 22:44 Dose: 650 mg Acetaminophen (Tylenol -) 325 mg PO Q4H PRN PRN Reason: PAIN Stop: 04/29/16 18:33 Last Admin: 04/27/16 15:54 Dose: 325 mg Aspirin (Asa -) 325 mg PO DAILY [facility] Last Admin: 04/27/16 09:34 Dose: 325 mg Atorvastatin Calcium (Lipitor -) 10 mg PO HS [facility] Clopidogrel Bisulfate (Plavix -) 75 mg PO DAILY [facility] Last Admin: 04/27/16 09:34 Dose: 75 mg Gabapentin (Neurontin -) 300 mg PO HS [facility] Last Admin: 04/26/16 22:47 Dose: 300 mg HCTZ/Losartan Potassium (Hyzaar -) 2 tab PO DAILY [facility] Last Admin: 04/27/16 09:32 Dose: Not Given Sodium Chloride (Normal Saline -) 1,000 mls @ 75 mls/hr IV ASDIR [facility] Last Admin: 04/27/16 03:51 Dose: 75 mls/hr Insulin Aspart (Novolog Vial Sliding Scale -) 1 vial SQ ACHS [facility] PRN Reason: Protocol Insulin Detemir (Levemir Vial) 40 units SQ AM [facility] Last Admin: 04/27/16 06:42 Dose: 40 units Insulin Detemir (Levemir Vial) 60 units SQ HS [facility] Last Admin: 04/26/16 20:11 Dose: 60 unit Labetalol HCl (Normodyne -) 200 mg PO BID [facility] Last Admin: 04/27/16 09:31 Dose: Not Given Non-Formulary Medication (Lipase/Protease/Amylase [Chris Wynn 24,000 Units Capsule ]) 24,000 units PO TIDCM [facility] Oxycodone HCl (Roxicodone -) 5 mg PO Q4H PRN PRN Reason: PAIN Last Admin: 04/27/16 15:57 Dose: 5 mg Paroxetine HCl (Paxil -) 30 mg PO DAILY [facility] Last Admin: 04/27/16 09:33 Dose: 30 mg - Objective Vital Signs: Vital Signs Temperature 98.3 F 04/27/16 13:59 Pulse Rate 67 04/27/16 13:59 Respiratory Rate 18 04/27/16 13:59 Blood Pressure 160/77 04/27/16 13:59 O2 Sat by Pulse Oximetry (%) 98 04/27/16 10:00 Constitutional: Yes: No Distress HENT: Yes: Atraumatic Neck: Yes: Supple Cardiovascular: Yes: Regular Rate and Rhythm Respiratory: Yes: CTA Bilaterally Gastrointestinal: Yes: Normal Bowel Sounds Extremities: Yes: WNL Neurological: Yes: Alert, Oriented Labs: CBC, BMP 04/27/16 08:53 INR, PTT INR 1.11 (0.82-1.09) 04/25/16 16:11 Problem List - Problems (1) Stroke-like episode Code(s): I63.9 - CEREBRAL INFARCTION, UNSPECIFIED (2) Vision abnormalities Code(s): H53.9 - UNSPECIFIED VISUAL DISTURBANCE Assessment/Plan Laboratory Tests 1.CVA MRI report reviewed NEURO CONSULT...reviewed 2.dm insulin/SLIDING SCALE bgms 3.htn on meds stable pt can be dc in am if cleared by cardio and neuro
[2016-04-27] MEDS ORDERED: INSULIN SLIDING SCALE (NOVOLOG) 1 VIAL SQ SCH (22:00)
[2016-04-27] MEDS: GABAPENTIN 300 MG CAPSULE (FP) PO SCH (22:19)
[2016-04-27] MEDS: ATORVASTATIN CA 10 MG TABLET (FP) PO SCH (22:19)
[2016-04-28] MEDS: oxyCODONE HCL 5 MG TABLET PO PRN ×4 (02:59→21:46)
[2016-04-28] MEDS: ACETAMINOPHEN 325 MG TABLET (FP) PO PRN ×4 (02:59→21:45)
[2016-04-28] MEDS: SODIUM CHLORIDE 1,000 ML IV SCH ×2 (05:43→18:57)
[2016-04-28] MEDS ORDERED: PT OWN MED DRAWER 7, Y5N ONE (09:33)
[2016-04-28] MEDS: ASPIRIN 325 MG TABLET PO SCH (09:37)
[2016-04-28] MEDS: LOSARTAN 50MG/HCTZ 12.5MG 1 TAB (FP) PO SCH (09:38)
[2016-04-28] MEDS: PARoxetine HCL 10 MG TABLET (FP) PO SCH (09:38)
[2016-04-28] MEDS: INSULIN DETEMIR 100 UNITS/ML MDV SQ SCH ×2 (09:38→21:56)
[2016-04-28] MEDS: CLOPIDOGREL BISULFATE 75 MG TABLET (FP) PO SCH (09:38)
[2016-04-28] MEDS: LABETALOL HCL 200 MG TABLET (FP) PO SCH ×2 (09:38→21:47)
--- NOTE | 2016-04-28 11:07 | PN ---
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 The patient states he was seen by Dr Petersen as an outpatient and reported some worsening of vision. Dr Petersen sent the patient for MRI brain which revealed nonhemorragic right retrolenticular and right pulvinar ischemic infarcts. Due to these findings, the patient was instructed to come to the ED for further stroke workup. States he is compliant on aspirin as an outpatient. NIHSS 4 - left leg drift and hemianopia No new complaints overnight. 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 - Alcohol/Substance Use Hx Alcohol Use: Yes (THREE TIME A WEEK BEER) - Smoking History Smoking history: Current every day smoker Aproximately how many cigarettes per day: 3 Home Medications - Allergies Allergies/Adverse Reactions: Allergies Allergy/AdvReac Type Severity Reaction Status Date / Time No Known Allergies Allergy Verified 04/25/16 15:47 - Home Medications Home Medications: Ambulatory Orders Atorvastatin Ca [Lipitor] 10 mg PO HS 04/26/16 Clopidogrel Bisulfate [Plavix -] 75 mg PO DAILY 04/26/16 Gabapentin 300 mg PO HS 04/26/16 Insulin Glargine,Hum.rec.anlog [Lantus (nf)] 40 units SQ AM 04/26/16 Insulin Glargine,Hum.rec.anlog [Lantus (nf)] 60 units SQ HS 04/26/16 Labetalol HCl [Normodyne -] 200 mg PO BID 04/26/16 Lipase/Protease/Amylase [Chris Wynn 24,000 Units Capsule] 24,000 units PO TID Losartan/Hydrochlorothiazide [Losartan-Hctz 100-25 mg Tab] 1 cap PO DAILY Review of Systems - Review of Systems Constitutional: reports: No Symptoms Eyes: reports: Recent Change in Vision HENT: reports: No Symptoms Neck: reports: No Symptoms Cardiovascular: reports: No Symptoms Respiratory: reports: No Symptoms Neurological: reports: Weakness Physical Exam Constitutional: Yes: No Distress Eyes: Yes: Conjunctiva Clear, EOM Intact HENT: Yes: Atraumatic, Normocephalic Cardiovascular: Yes: S1, S2 Respiratory: Yes: Regular Neurological: Yes: Alert, Oriented, Other (EOMI, visual galicia full, left homonymous hemianopia Motor: can lift left leg against gravity difficult to sustain, ?left pronator drift subtle, right arm/leg strength intact Sensory intact to light touch) Assessment/Plan 60 year old man, with history of multiple prior strokes with residual left hemiparesis and hemianopia, hypertension, diabetes, sent yesterday for MRI brain findings of new acute ischemic infarcts. The patient states he was seen by Dr Petersen as an outpatient and reported some worsening of vision. Dr Petersen sent the patient for MRI brain which revealed nonhemorragic right retrolenticular and right pulvinar ischemic infarcts. Due to these findings, the patient was instructed to come to the ED for further stroke workup. States he is compliant on aspirin as an outpatient. Stroke MRI brain which revealed nonhemorragic right retrolenticular and right pulvinar ischemic infarcts NIHSS 4 - left leg drift and hemianopia Aspirin 325 daily Atorvastatin 10 mg daily Carotid dopplers no high grade stenosis Echocardiogram- LV normal Spoke to Dr El- depending on whether patient is agreeable for KANDIS patient may stay Can follow up with neuro as outpatient (patient follows with Dr. Petersen) after cardio workup complete
[2016-04-28] MEDS: INSULIN SLIDING SCALE (NOVOLOG) 1 VIAL SQ SCH ×2 (11:53→18:18)
--- NOTE | 2016-04-28 17:37 | PN ---
Progress Note, Physician History of Present Illness: seen and examined today in nad. feeling better today. no overnight events. no new complaints. - Current Medication List Current Medications: Active Medications Acetaminophen (Tylenol -) 650 mg PO Q6H PRN PRN Reason: FEVER OR PAIN Last Admin: 04/25/16 22:44 Dose: 650 mg Acetaminophen (Tylenol -) 325 mg PO Q4H PRN PRN Reason: PAIN Stop: 04/29/16 18:33 Last Admin: 04/28/16 16:42 Dose: 325 mg Aspirin (Asa -) 325 mg PO DAILY [facility] Last Admin: 04/28/16 09:37 Dose: 325 mg Atorvastatin Calcium (Lipitor -) 10 mg PO HS [facility] Last Admin: 04/27/16 22:19 Dose: 10 mg Clopidogrel Bisulfate (Plavix -) 75 mg PO DAILY [facility] Last Admin: 04/28/16 09:38 Dose: 75 mg Gabapentin (Neurontin -) 300 mg PO HS [facility] Last Admin: 04/27/16 22:19 Dose: 300 mg HCTZ/Losartan Potassium (Hyzaar -) 2 tab PO DAILY [facility] Last Admin: 04/28/16 09:38 Dose: 2 tab Sodium Chloride (Normal Saline -) 1,000 mls @ 75 mls/hr IV ASDIR [facility] Last Admin: 04/28/16 05:43 Dose: 75 mls/hr Insulin Aspart (Novolog Vial Sliding Scale -) 1 vial SQ BID@1100,1630 [facility] PRN Reason: Protocol Last Admin: 04/28/16 11:53 Dose: Not Given Insulin Detemir (Levemir Vial) 40 units SQ AM [facility] Last Admin: 04/28/16 09:38 Dose: 40 units Insulin Detemir (Levemir Vial) 60 units SQ HS [facility] Last Admin: 04/27/16 22:20 Dose: 60 units Labetalol HCl (Normodyne -) 200 mg PO BID [facility] Last Admin: 04/28/16 09:38 Dose: 200 mg Non-Formulary Medication (Lipase/Protease/Amylase [Chris Wynn 24,000 Units Capsule ]) 24,000 units PO TIDCM [facility] Oxycodone HCl (Roxicodone -) 5 mg PO Q4H PRN PRN Reason: PAIN Last Admin: 04/28/16 16:42 Dose: 5 mg Paroxetine HCl (Paxil -) 30 mg PO DAILY [facility] Last Admin: 04/28/16 09:38 Dose: 30 mg - Objective Vital Signs: Vital Signs Temperature 97.5 F L 04/28/16 13:00 Pulse Rate 62 04/28/16 13:00 Respiratory Rate 18 04/28/16 13:00 Blood Pressure 157/78 04/28/16 13:00 O2 Sat by Pulse Oximetry (%) 97 04/28/16 09:40 Constitutional: Yes: Well Nourished, No Distress, Calm Eyes: Yes: WNL, Conjunctiva Clear, EOM Intact, PERRL HENT: Yes: WNL, Atraumatic, Normocephalic Neck: Yes: WNL, Supple, Trachea Midline Cardiovascular: Yes: Regular Rate and Rhythm, S1, S2. No: Bradycardia, Tachycardia, Pulse Irregular, Bruit, JVD, Gallop, Murmur, Rub, S3, S4, Varicosities Respiratory: Yes: Regular, CTA Bilaterally. No: Rales, Rhonchi, Wheezes Gastrointestinal: Yes: Normal Bowel Sounds, Soft. No: Distention, Tenderness Musculoskeletal: Yes: WNL Extremities: Yes: WNL Edema: No Peripheral Pulses WNL: Yes Peripheral Pulses: Left Doralis Pedis: 2+, Right Dorsalis Pedis: 2+ Integumentary: Yes: WNL Neurological: Yes: Alert, Oriented Psychiatric: Yes: Alert, Oriented Labs: CBC, BMP 04/27/16 08:53 04/27/16 08:53 INR, PTT INR 1.11 (0.82-1.09) 04/25/16 16:11 - ....Imaging Chest X-ray: Report Reviewed, Image Reviewed EKG: Report Reviewed, Image Reviewed Other: Report Reviewed, Image Reviewed (tele-nsr, frequent apcs, pvcs) Assessment/Plan 60 year old man with a history of HTN, HLD, DM II, Pancreatic CA s/p surgery, multiple prior CVA's 11/2015 and 02/2016 admitted with new neurologic deficits and found to have new CVA's on MRI. CVA-multiple, admitted with subacute infarcts Echo showed normal LV function, mild mr, no pericardial effusion Tele monitoring has showed no arrhythmias Pt also has Holter monitor on, f/up results Carotid doppler showed no plaque or stenosis Neurology evaluated HTN goals as per neurology guidelines, resume home meds as needed to achieve HTN goal Cont ASA and statin Plan for KANDIS tomorrow to evaluate for cardiac source of embolism, keep npo after midnight except medications for procedure tomorrow
--- NOTE | 2016-04-28 19:06 | PN ---
Progress Note, Physician History of Present Illness: doing well - Current Medication List Current Medications: Active Medications Acetaminophen (Tylenol -) 650 mg PO Q6H PRN PRN Reason: FEVER OR PAIN Last Admin: 04/25/16 22:44 Dose: 650 mg Acetaminophen (Tylenol -) 325 mg PO Q4H PRN PRN Reason: PAIN Stop: 04/29/16 18:33 Last Admin: 04/28/16 16:42 Dose: 325 mg Aspirin (Asa -) 325 mg PO DAILY [facility] Last Admin: 04/28/16 09:37 Dose: 325 mg Atorvastatin Calcium (Lipitor -) 10 mg PO HS [facility] Last Admin: 04/27/16 22:19 Dose: 10 mg Clopidogrel Bisulfate (Plavix -) 75 mg PO DAILY [facility] Last Admin: 04/28/16 09:38 Dose: 75 mg Gabapentin (Neurontin -) 300 mg PO HS [facility] Last Admin: 04/27/16 22:19 Dose: 300 mg HCTZ/Losartan Potassium (Hyzaar -) 2 tab PO DAILY [facility] Last Admin: 04/28/16 09:38 Dose: 2 tab Sodium Chloride (Normal Saline -) 1,000 mls @ 75 mls/hr IV ASDIR [facility] Last Admin: 04/28/16 18:57 Dose: Not Given Insulin Aspart (Novolog Vial Sliding Scale -) 1 vial SQ BID@1100,1630 [facility] PRN Reason: Protocol Last Admin: 04/28/16 18:18 Dose: Not Given Insulin Detemir (Levemir Vial) 40 units SQ AM [facility] Last Admin: 04/28/16 09:38 Dose: 40 units Insulin Detemir (Levemir Vial) 60 units SQ HS [facility] Last Admin: 04/27/16 22:20 Dose: 60 units Labetalol HCl (Normodyne -) 200 mg PO BID [facility] Last Admin: 04/28/16 09:38 Dose: 200 mg Non-Formulary Medication (Lipase/Protease/Amylase [Creon Dr 24,000 Units Capsule ]) 24,000 units PO TIDCM [facility] Oxycodone HCl (Roxicodone -) 5 mg PO Q4H PRN PRN Reason: PAIN Last Admin: 04/28/16 16:42 Dose: 5 mg Paroxetine HCl (Paxil -) 30 mg PO DAILY [facility] Last Admin: 04/28/16 09:38 Dose: 30 mg - Objective Vital Signs: Vital Signs Temperature 97.5 F L 04/28/16 13:00 Pulse Rate 62 04/28/16 13:00 Respiratory Rate 18 04/28/16 13:00 Blood Pressure 157/78 04/28/16 13:00 O2 Sat by Pulse Oximetry (%) 97 04/28/16 09:40 Constitutional: Yes: No Distress HENT: Yes: Atraumatic Neck: Yes: Supple Cardiovascular: Yes: Regular Rate and Rhythm Respiratory: Yes: CTA Bilaterally Gastrointestinal: Yes: Normal Bowel Sounds Extremities: Yes: WNL Neurological: Yes: Alert, Oriented Labs: CBC, BMP 04/27/16 08:53 04/27/16 08:53 INR, PTT INR 1.11 (0.82-1.09) 04/25/16 16:11 Problem List - Problems (1) Stroke-like episode Code(s): I63.9 - CEREBRAL INFARCTION, UNSPECIFIED (2) Vision abnormalities Code(s): H53.9 - UNSPECIFIED VISUAL DISTURBANCE Assessment/Plan 1.CVA on asa 2.dm insulin bgms 3.htn stable on meds on holter monitor pt eval dvt ppx pt ambulates for david in am if stable can be dc home
[2016-04-28] MEDS: GABAPENTIN 300 MG CAPSULE (FP) PO SCH (21:47)
[2016-04-28] MEDS: ATORVASTATIN CA 10 MG TABLET (FP) PO SCH (21:48)
[2016-04-28] MEDS ORDERED: PANTOPRAZOLE 40 MG TABLET (FP) PO ONE (23:15)
[2016-04-29] MEDS: oxyCODONE HCL 5 MG TABLET PO PRN ×3 (03:14→16:26)
[2016-04-29] MEDS: ACETAMINOPHEN 325 MG TABLET (FP) PO PRN ×2 (03:15→08:03)
[2016-04-29] MEDS ORDERED: DEXTROSE 50%-WATER 50 ML DISP.SYRIN ONE (05:15)
[2016-04-29] MEDS ORDERED: DEXTROSE 50%-WATER 50 ML VIAL IVPUSH ONE (05:20)
[2016-04-29] MEDS ORDERED: DEXTROSE 50%-WATER 50 ML DISP.SYRIN IVPUSH ONE (05:30)
[2016-04-29] MEDS ORDERED: DEXTROSE 5%-0.45% SALINE 1,000 ML IV SCH (06:35)
[2016-04-29] MEDS: INSULIN DETEMIR 100 UNITS/ML MDV SQ SCH (06:52)
[2016-04-29] MEDS: CLOPIDOGREL BISULFATE 75 MG TABLET (FP) PO SCH (09:22)
[2016-04-29] MEDS: LABETALOL HCL 200 MG TABLET (FP) PO SCH (09:22)
[2016-04-29] MEDS: LOSARTAN 50MG/HCTZ 12.5MG 1 TAB (FP) PO SCH (09:22)
[2016-04-29] MEDS: ASPIRIN 325 MG TABLET PO SCH (09:22)
[2016-04-29] MEDS: PARoxetine HCL 10 MG TABLET (FP) PO SCH (11:34)
[2016-04-29] MEDS: INSULIN SLIDING SCALE (NOVOLOG) 1 VIAL SQ SCH (11:35)
[2016-04-29] MEDS ORDERED: LIDOCAINE VISCOUS 2% ORAL/TOP 100 ML BOTTLE MM ONE (14:22)
[2016-04-29 15:08] VITALS: TEMP 97.5
[2016-04-29 15:20] VITALS: PULSE 80
[2016-04-29 15:35] VITALS: BP 148/72
--- NOTE | 2016-04-29 16:19 | PN ---
Progress Note (short form) - Note Progress Note: KANDIS performed today. Pt tolerated procedure well. There were no complications. See full report in computer. No left atrial or left atrial appendage thrombus. Moderate non-mobile atheroma in the aortic arch and proximal descending aorta. Possible small patent foramen ovale. No definite cardiac source of embolism identified. Keep pt NPO for 2 hours post procedure then check gag reflex and if positive can resume previous diet. Pt. is acceptable from a cardiac standpoint for discharge. Pt needs to follow up within 1 week of discharge for close follow up of blood pressure and with plan for extended outpatient event monitoring to further evaluate for occult arrhythmia. Will add procardia XL 30mg now then daily to his current anti-htn regimen and this can be followed as outpatient
[2016-04-29] MEDS ORDERED: NIFEdipine E.R. 30 MG TABLET (FP) PO SCH (16:30)
--- NOTE | 2016-04-29 19:16 | DS ---
Physical Examination Vital Signs: Vital Signs Temperature 97.5 F L 04/29/16 14:40 Pulse Rate 80 04/29/16 15:15 Respiratory Rate 20 04/29/16 15:15 Blood Pressure 148/72 04/29/16 15:15 O2 Sat by Pulse Oximetry (%) 99 04/29/16 15:15 Constitutional: Yes: No Distress HENT: Yes: Atraumatic Neck: Yes: Supple Cardiovascular: Yes: Regular Rate and Rhythm Respiratory: Yes: CTA Bilaterally Gastrointestinal: Yes: Normal Bowel Sounds Extremities: Yes: WNL Neurological: Yes: Alert, Oriented Labs: CBC, BMP 04/27/16 08:53 04/27/16 08:53 Discharge Summary Reason For Visit: STROKE LIKE EPISODE,ABNORMAL VISION - Instructions Referrals: Rosa Maria Petersen MD [Primary Care Provider] - Disposition: HOME - Home Medications Comprehensive Discharge Medication List: Ambulatory Orders Clopidogrel Bisulfate [Plavix -] 75 mg PO DAILY 04/26/16 Gabapentin 300 mg PO HS 04/26/16 Insulin Glargine,Hum.rec.anlog [Lantus (10mL VIAL) -] 40 units SQ AM 04/26/16 Insulin Glargine,Hum.rec.anlog [Lantus (10mL VIAL) -] 60 units SQ HS 04/26/16 Labetalol HCl [Normodyne -] 200 mg PO BID 04/26/16 Lipase/Protease/Amylase [Creon Dr 24,000 Units Capsule] 24,000 units PO TID Losartan/Hydrochlorothiazide [Losartan-Hctz 100-25 mg Tab] 1 cap PO DAILY Oxycodone HCl/Acetaminophen [Endocet 5-325 Tablet] 1 each PO Q4H PRN 04/26/16 Paroxetine HCl [Paxil] 30 mg PO DAILY 04/26/16 Aspirin [ASA -] 325 mg PO DAILY #30 tablet 04/27/16 Atorvastatin Ca [Lipitor] 20 mg PO HS #30 tablet 04/27/16 Nifedipine ER [Procardia XL -] 30 mg PO DAILY #30 tab.er.24 04/29/16 KANDIS WNL DC HOME FU CARDIOLOGY NEXT WEEK
== END 2016-04-29 17:55 | disposition home or self-care (01) | DRG 65 ==
LOC: JER 15:28 → JERBED 20:25 → UNDOADMIN 20:25 → JERBED 21:32 → J4S 04-26 14:09
PROVIDERS: ADMIT Internal Medicine; ATTEND Internal Medicine
PROC: B246ZZ4 Ultrasonography of Right and Left Heart, Transesophageal (ICD-10-PCS; principal; 2016-04-29 14:00)
DX: I63.9 Cerebral infarction, unspecified (principal); G81.94 Hemiplegia, unspecified affecting left nondominant side; I10 Essential (primary) hypertension; E11.9 Type 2 diabetes mellitus without complications; E78.5 Hyperlipidemia, unspecified; F17.210 Nicotine dependence, cigarettes, uncomplicated
CPT/HCPCS: 36415; 71020-TC; 80053; 80061; 82550; 83036; 83721; 84484; 85025; 85027; 85610; 93005; 93010; 93225; 93226; 93306-TC; 93312; 93325; 93880-TC; 97116-GP; 97162-PG; 99285-25; G0008; Q2037